=== PATIENT | female | born 1980 | race Asian ===

== ENCOUNTER 2023-03-20 09:43 | Emergency (ER) | payer OTHER ==
[2023-03-20 10:06] VITALS: BP 118/91; PULSE 75; RESP 18; TEMP 98.7; BMI 20.5
== END 2023-03-20 10:18 | disposition home or self-care (01) ==
LOC: FER 09:43
DX: R22.1 Localized swelling, mass and lump, neck (principal); R59.9 Enlarged lymph nodes, unspecified
CPT/HCPCS: 99283-25